=== PATIENT | male | born 1970 | race Caucasian/White ===

== ENCOUNTER 2016-06-01 06:12 | Emergency (ER) | payer MEDICARE ==
[2011-05-05 09:41] VITALS: BMI 32.0
== END 2016-06-01 06:40 | disposition home or self-care (01) ==
LOC: D.ER 06:12
DX: S60.212A Contusion of left wrist, initial encounter (principal); X58.XXXA Exposure to other specified factors, initial encounter; Z72.0 Tobacco use; I10 Essential (primary) hypertension; H91.90 Unspecified hearing loss, unspecified ear

== ENCOUNTER 2016-06-01 20:51 | Emergency (ER) | payer MEDICARE ==
[2011-05-05 09:41] VITALS: BMI 32.0
== END 2016-06-01 22:40 | disposition home or self-care (01) ==
LOC: D.ER 20:51
DX: S60.212D Contusion of left wrist, subsequent encounter (principal); X58.XXXD Exposure to other specified factors, subsequent encounter; H91.3 Deaf nonspeaking, not elsewhere classified; I10 Essential (primary) hypertension